=== PATIENT | female | born 1960 | race Caucasian/White ===

== ENCOUNTER 2020-09-13 17:03 | Outpatient (REF) | payer BC, SELFPAY | END 2020-09-13 17:04 | disposition home or self-care (01) | LOC: HO.LAB 17:03 | PROVIDERS: PCP Family Medicine; Visit Provider Internal Medicine | DX: Z20.828 Contact with and (suspected) exposure to other viral communicable diseases (principal) | CPT/HCPCS: U0003 ==

== ENCOUNTER 2024-03-13 10:59 | Outpatient (AMB) | payer BC, SELFPAY ==
--- NOTE | 2024-03-13 11:03 | MHC.OFFVIS ---
Vital Signs 03/13/24 11:12 Weight 150 lb BP 127/86 Blood Pressure Location Rt brachial Position Sitting Pulse 82 Intake Visit Reasons: Hemorrhoids Intake Note: This patient was referred by Adia Cook MD for an assessment for hemorrhoids. 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 She says that she has had hemorrhoids for over 10 years. She describes periodic discomfort with this. She says she would notice small amounts of blood once in a while with wiping. She also describes some itching around her hemorrhoids. She had a colonoscopy recently and she was told to see me because of her hemorrhoids. She has a history of constipation as well. PFSH Medical History Bleeding hemorrhoids Surgical History Hx of cataract surgery H/O knee surgery H/O section Family History Father Melanoma Social History Alcohol intake: current Alcohol intake frequency: holidays/special occasions only Patient Tobacco Use Status: Never used Tobacco Review of Systems Const Denies chills and Denies fever(s) Card Denies chest pain, Denies dyspnea and Denies dyspnea on exertion Resp Denies cough, Denies dyspnea and Denies dyspnea on exertion GI Reports hematochezia, Denies change in bowel habits and Reports constipation Denies hematuria Musc Denies back pain and Denies limited range of motion Neuro Denies focal weakness and Denies convulsions Psych Denies depression and Denies mood swings Physical Exam Vital Signs: Last Vital Signs Pulse 82 03/13/24 11:12 BP 127/86 03/13/24 11:12 Const General: comfortable and no acute distress Orientation/consciousness: patient oriented x3 Neck Neck: Yes no lymphadenopathy Resp Auscultation: clear to auscultation bilaterally Cardio Rhythm: regular rhythm GI Other: Rectal exam shows small external hemorrhoids left and right, no thrombosis or bleeding, no perianal lesions Palpation (GI): Soft to palpation, nontender and no guarding Neuro General: patient oriented x3 Office Procedures Anoscopy She was in alberto-knife position. The anoscope was gently inserted. A full examination of the anal canal was done. She did have internal and external hemorrhoidal columns on the left and the right side. These were moderate sized There were no fissures. There was no ulcer. There was no induration on digital exam. There was no bleeding. [id number] Assessment & Plan Assessment & Plan (1) Bleeding hemorrhoids: Code(s): K64.9 - Unspecified hemorrhoids Category: Medical Plan: She has internal and external hemorrhoids, and describe some bleeding periodically. She also says that sometimes this can cause discomfort although she does not think they are not swollen?. I reviewed with her the option of proceeding with hemorrhoidectomy. I discussed the technique of this procedure. I explained the risks including but not limited to bleeding, infections, postop pain, as well as the benefits and alternatives. I also explained to her what to expect postoperatively. She says she would like to think about her options. In the meantime, I will describe her Colace for constipation She says she will call the office if decides to proceed with hemorrhoidectomy. She is also welcome to come back down the line to be re-evaluated if she chooses not to have hemorrhoidectomy. Medications: New docusate sodium (Colace) 100 mg PO DAILY 60 caps 2RF Coding Level of Care Code New Pt Level 3 (29996) Diagnoses Bleeding hemorrhoids K64.9 CPT Codes Details - CPT: 26013-[id number] ([id number])
[2024-03-13 11:12] VITALS: BP 127/86; PULSE 82
== END 2024-03-13 11:55 | disposition home or self-care (01) ==
PROVIDERS: PCP Family Medicine; Referring Provider Family Medicine; Visit Provider Surgery
DX: K64.9 Unspecified hemorrhoids (principal)
CPT/HCPCS: 46600; 99203

== ENCOUNTER → 2024-03-13 10:59 | Outpatient (BNVA) | payer BC, SELFPAY | PROVIDERS: PCP Family Medicine; Referring Provider Family Medicine; Visit Provider Surgery | DX: K64.8 Other hemorrhoids (principal); K64.4 Residual hemorrhoidal skin tags | CPT/HCPCS: 46600 ==